=== PATIENT | female | born 1990 | race Caucasian/White ===

== ENCOUNTER 2017-01-13 07:42 | Emergency (ER) | payer MEDICAID, MEDICARE ==
[~2017-01-13] VITALS: Ht 165.1 cm; Wt 90.7 kg
[~2017-01-13 07:42] MED LIST: PNV1CAPS PO
[2017-01-13 08:00] VITALS: BP_SYST 118
[2017-01-13] MEDS ORDERED: DEXAMETHASONE SOD PHOSPHATE 10 MG/ML VIAL IM ONE (08:15)
[2017-01-13] MEDS ORDERED: KETOROLAC TROMETHAMINE 60 MG/2 ML VIAL IM ONE (08:15)
[2017-01-13 09:00] VITALS: BP_SYST 120
== END 2017-01-13 09:00 | disposition home or self-care (01) ==
LOC: SED 07:42
DX: J03.90 Acute tonsillitis, unspecified (principal)
CPT/HCPCS: 96372; 99284; J1100; J1885

== ENCOUNTER 2017-02-12 15:50 | Emergency (ER) | payer MEDICARE ==
[~2017-02-12] VITALS: Ht 165.1 cm; Wt 95.3 kg
[2017-02-12 16:12] VITALS: BP_SYST 107
[2017-02-12 16:42] LABS: BILIRUBIN,URINE 1+ (NEGATIVE); BLOOD, URINE NEGATIVE (NEGATIVE); CLARITY/URINE CLEAR (CLEAR); COLOR,URINE YELLOW (YELLOW); GLUCOSE,URINE NEGATIVE (NEGATIVE); KETONES,URINE 1+ (NEGATIVE); LEUKOCYTE ESTERASE ,URINE NEGATIVE (NEGATIVE); NITRITE, URINE NEGATIVE (NEGATIVE); PROTEIN URINE NEGATIVE (NEGATIVE); UROBILINOGEN,URINE 0.2 (0.2-1.0)
[2017-02-12] MEDS ORDERED: ONDANSETRON HCL 4 MG/2 ML VIAL IVP ONE (17:00)
[2017-02-12] MEDS ORDERED: KETOROLAC TROMETHAMINE 30 MG VIAL IVP ONE (17:00)
[2017-02-12 17:25] LABS: BASOPHILS # (AUTO) 0.1 K/uL (0.0-0.2); BASOPHILS % (AUTO) 1.1 % (0.0-2.0); EOSINOPHILS # (AUTO) 0.1 K/uL (0.0-0.4); EOSINOPHILS % (AUTO) 0.9 % (0.0-4.0); HEMATOCRIT 29.5 % (36-48); HEMOGLOBIN 9.2 g/dL (12.0-16.0); LYMPHOCYTES # (AUTO) 0.7 K/uL (1.0-5.5); LYMPHOCYTES % (AUTO) 9.8 % (20.5-51.5); MEAN CORPUSCULAR HEMOGLOBIN 19 pg (27-31); MEAN CORPUSCULAR HGB CONC 31 % (32-36); MEAN CORPUSCULAR VOLUME 61 fL (79.0-98.0); MONOCYTES # (AUTO) 0.4 K/uL (0.0-1.0); MONOCYTES % (AUTO) 5.5 % (1.7-9.3); NEUTROPHILS # (AUTO) 5.9 K/uL (1.8-7.7); NEUTROPHILS % (AUTO) 82.7 % (40.0-70.0); PLATELET COUNT (AUTO) 227 K/uL (130-430); RED BLOOD CELL COUNT(AUTO) 4.82 MIL/uL (4.2-6.2); RED CELL DISTRIBUTION WIDTH 18.3 % (9.0-15.0); WHITE BLOOD COUNT (AUTO) 7.2 K/uL (4.8-10.8)
[2017-02-12 17:28] LABS: RBC,URINE 0-3 /HPF (0-3)
[2017-02-12 17:29] LABS: BACTERIA,URINE FEW /HPF (None Seen); MUCUS,URINE 1+ /LPF (None Seen); WBC,URINE 0-3 /HPF (0-3)
[2017-02-12 17:39] LABS: CALCIUM 8.5 mg/dL (8.4-11.0); CREATININE 0.85 mg/dL (0.55-1.30); POTASSIUM 4.1 mmol/L (3.5-5.1)
[2017-02-12 17:43] LABS: ALBUMIN 3.6 g/dL (3.4-4.8); TOTAL BILIRUBIN 0.5 mg/dL (0.0-1.0); TOTAL PROTEIN, SERUM 7.6 g/dL (6.4-8.3)
[2017-02-12 18:35] VITALS: BP_SYST 107
== END 2017-02-12 18:35 | disposition home or self-care (01) ==
LOC: SED 15:50
DX: A08.4 Viral intestinal infection, unspecified (principal); D64.9 Anemia, unspecified
CPT/HCPCS: 36415; 80053; 81000; 81025; 83690; 85025; 96374; 96375; 99284; J1885; J2405

== ENCOUNTER 2017-06-14 13:11 | Emergency (ER) | payer MEDICARE ==
[~2017-06-14] VITALS: Ht 165.1 cm; Wt 97.5 kg
[2017-06-14 13:11] VITALS: BP_SYST 114; BP_SYST 14
[2017-06-14 14:05] LABS: BILIRUBIN,URINE NEGATIVE (NEGATIVE); BLOOD, URINE NEGATIVE (NEGATIVE); CLARITY/URINE CLEAR (CLEAR); COLOR,URINE YELLOW (YELLOW); GLUCOSE,URINE NEGATIVE (NEGATIVE); KETONES,URINE NEGATIVE (NEGATIVE); LEUKOCYTE ESTERASE ,URINE 1+ (NEGATIVE); NITRITE, URINE NEGATIVE (NEGATIVE); PROTEIN URINE NEGATIVE (NEGATIVE); UROBILINOGEN,URINE 0.2 (0.2-1.0)
[2017-06-14 14:12] LABS: BACTERIA,URINE FEW /HPF (None Seen); RBC,URINE 0-3 /HPF (0-3); WBC,URINE 0-3 /HPF (0-3)
[2017-06-14 14:13] LABS: MUCUS,URINE None Seen /LPF (None Seen)
[2017-06-14 14:26] VITALS: BP_SYST 138
== END 2017-06-14 14:26 | disposition home or self-care (01) ==
LOC: SED 13:11
DX: O26.891 Other specified pregnancy related conditions, first trimester (principal); R10.30 Lower abdominal pain, unspecified; Z3A.10 10 weeks gestation of pregnancy
CPT/HCPCS: 81000-TC; 81025; 99285

== ENCOUNTER 2020-08-26 21:01 | Emergency (ER) | payer BC, MEDICARE ==
[~2020-08-26] VITALS: Ht 165.1 cm; Wt 107.5 kg
[2020-08-26 21:11] VITALS: BP_SYST 124
--- NOTE | 2020-08-26 21:11 | NUR ---
Patient to ER bed 04 to gown for evaluation. Side rails up. Report given to WOLF Blue
--- NOTE | 2020-08-26 21:12 | NUR ---
Patient came to ER with family. C/O hand pain x today. Patient reported, had right hand burning sensation today, denies injury or trauma. A/O,X4, right hand burning sensation, no numbness, pain 8/.
--- NOTE | 2020-08-26 21:23 | NUR ---
ER Dr. Turcios at bedside examining patient.
[2020-08-26] MEDS ORDERED: cefTRIAXone 1 GM in LIDOCAINE 1%, 20 ML MDV 2.1 ML IM ONE (21:30)
[2020-08-26] MEDS ORDERED: KETOROLAC TROMETHAMINE 60 MG/2 ML VIAL IM ONE (21:30)
[2020-08-26 21:55] VITALS: BP_SYST 124
--- NOTE | 2020-08-26 21:55 | NUR ---
Patient given written and verbal discharge instructions and verbalizes understanding by Dr. Turcios. ER MD discussed with patient the results and treatment provided. Patient in stable condition. ID arm band removed. Rx of Keflex given. Patient educated on pain management and to follow up with PMD. Pain Scale 2/10. Opportunity for questions provided and answered. Medication side effect fact sheet provided.
== END 2020-08-26 21:55 | disposition home or self-care (01) ==
LOC: SED 21:01
DX: L03.113 Cellulitis of right upper limb (principal)
CPT/HCPCS: 96372; 99284; J0696; J1885; J2001